=== PATIENT | male | born 1960 | race Caucasian/White ===

== ENCOUNTER 2020-12-06 18:25 | Emergency (ER) | payer MEDICAID ==
--- NOTE | 2020-12-06 18:59 | EDM.PDOC ---
ED HPI GENERAL MEDICAL PROBLEM - General Chief Complaint: ENT Problem Stated Complaint: FB STUCK IN THROAT Time Seen by Provider: 12/06/20 18:32 Source of Information: Reports: Patient, RN Notes Reviewed History Limitations: Reports: No Limitations - History of Present Illness INITIAL COMMENTS - FREE TEXT/NARRATIVE: Patient is a 60-year-old male presenting to the emergency department with complaints of foreign body sensation in his esophagus. He states around 6 PM this evening, he was eating pork chop and that he choked on it. He states that it felt like it was stuck in his throat. He drinks some water and coughed again. He coughed up a small piece of pork chop but states that he also coughed up blood. Few minutes later then he coughed up more blood. He feels like there is something's stuck in his distal esophagus. He has had problems with swallowing in the past but has never required endoscopy for retrieval. Denies any further bleeding at this time. He is not having significant pain but rather has a foreign body sensation in his distal esophagus. Upper Abdomen Pain Score (Numeric/FACES): 7 - Related Data Allergies Allergy/AdvReac Type Severity Reaction Status Date / Time No Known Allergies Allergy Verified 12/06/20 18:37 Home Meds: Home Meds . [No Known Home Meds] 12/06/20 [History] Past Medical History Psychiatric History: Reports: Anxiety, Depression - Past Surgical History Musculoskeletal Surgical History: Reports: Arthroscopic Knee, Other (See Below) Other Musculoskeletal Surgeries/Procedures:: open knee surgery Social & Family History - Tobacco Use Tobacco Use Status *Q: Current Every Day Tobacco User Years of Tobacco use: 40 Packs/Tins Daily: 0.5 - Caffeine Use Caffeine Use: Reports: Coffee, Soda - Recreational Drug Use Recreational Drug Use: No ED ROS ENT - Review of Systems Review Of Systems: See Below Constitutional: Reports: No Symptoms. Denies: Fever, Chills HEENT: Reports: No Symptoms Respiratory: Reports: No Symptoms Cardiovascular: Reports: No Symptoms Endocrine: Reports: No Symptoms GI/Abdominal: Reports: Other (Foreign body sensation in distal esophagus. Coughing up blood.) : Reports: No Symptoms Musculoskeletal: Reports: No Symptoms Skin: Reports: No Symptoms Neurological: Reports: No Symptoms Psychiatric: Reports: No Symptoms Hematologic/Lymphatic: Reports: No Symptoms Immunologic: Reports: No Symptoms ED EXAM, ENT - Physical Exam Exam: See Below General Appearance: Alert, WD/WN, No Apparent Distress Respiratory/Chest: No Respiratory Distress, Lungs Clear, Normal Breath Sounds, No Accessory Muscle Use, Chest Non-Tender Cardiovascular: Normal Peripheral Pulses, Regular Rate, Rhythm, No Edema, No Gallop, No JVD, No Murmur, No Rub GI/Abdominal: Normal Bowel Sounds, Soft, Non-Tender, No Organomegaly, No Distention, No Abnormal Bruit, No Mass Neurological: Alert, Oriented, CN II-XII Intact, Normal Cognition, Normal Gait, Normal Reflexes, No Motor/Sensory Deficits Psychiatric: Normal Affect, Normal Mood Skin: Warm, Dry, Intact, Normal Color, No Rash Course - Vital Signs Last Recorded V/S: Last Vital Signs Temp 95.8 F L 12/06/20 18:43 Pulse 93 12/06/20 18:43 Resp 20 12/06/20 18:43 BP 179/110 H 12/06/20 18:43 Pulse Ox 99 12/06/20 18:43 - Orders/Labs/Meds Labs: Laboratory Tests 12/06/20 12/06/20 Range/Units 19:34 19:34 WBC 9.69 H (4.23-9.07) K/mm3 RBC 5.53 (4.63-6.08) M/mm3 Hgb 15.9 (13.7-17.5) gm/dl Hct 48.2 (40.1-51.0) % MCV 87.2 (79.0-92.2) fl MCH 28.8 (25.7-32.2) pg MCHC 33.0 (32.2-35.5) g/dl RDW Std Deviation 43.1 (35.1-43.9) fL Plt Count 245 (163-337) K/mm3 MPV 11.6 (9.4-12.3) fl Neut % (Auto) 55.7 (34.0-67.9) % Lymph % (Auto) 32.0 (21.8-53.1) % [place] % (Auto) 7.6 (5.3-12.2) % Eos % (Auto) 4.0 (0.8-7.0) Baso % (Auto) 0.5 (0.1-1.2) % Neut # (Auto) 5.39 H (1.78-5.38) K/mm3 Lymph # (Auto) 3.10 (1.32-3.57) K/mm3 [place] # (Auto) 0.74 (0.30-0.82) K/mm3 Eos # (Auto) 0.39 (0.04-0.54) K/mm3 Baso # (Auto) 0.05 (0.01-0.08) K/mm3 Sodium 143 (136-145) mEq/L Potassium 4.0 (3.5-5.1) mEq/L Chloride 105 (98-107) mEq/L Carbon Dioxide 23 (21-32) mEq/L Anion Gap 19.0 H (5-15) BUN 19 H (7-18) mg/dL Creatinine 1.2 (0.7-1.3) mg/dL Est Cr Clr Drug Dosing 88.89 mL/min Estimated GFR (MDRD) > 60 (>60) mL/min BUN/Creatinine Ratio 15.8 (14-18) Glucose 138 H (74-106) mg/dL Calcium 9.1 (8.5-10.1) mg/dL Total Bilirubin 0.3 (0.2-1.0) mg/dL AST 17 (15-37) U/L ALT 35 (16-63) U/L Alkaline Phosphatase 91 (46-116) U/L Total Protein 7.8 (6.4-8.2) g/dl Albumin 4.0 (3.4-5.0) g/dl Globulin 3.8 gm/dL Albumin/Globulin Ratio 1.1 (1-2) Meds: Medications Discontinued Medications Generic Name Dose Route Start Last Admin Trade Name Freq PRN Reason Stop Dose Admin Al Hydroxide/Mg Hydroxide 30 0 ml 12/06/20 20:04 12/06/20 20:10 ml/ Lidocaine HCl 15 ml PO 12/06/20 20:05 45 ml ONETIME ONE Administration Glucagon 1 mg 12/06/20 19:26 12/06/20 19:41 Glucagen IVPUSH 12/06/20 19:27 1 mg ONETIME ONE Administration Lorazepam 1 mg 12/06/20 19:25 12/06/20 19:41 Ativan IVPUSH 12/06/20 19:26 1 mg ONETIME ONE Administration - Re-Assessments/Exams Free Text/Narrative Re-Assessment/Exam: Patient is a 6-year-old male presenting to the emergency department with complaints of foreign body sensation in his distal esophagus after choking on a pork chop. He also complains of spitting up blood on 2 instances after a choking episode. He has had problems with getting food stuck noises to the esophagus in the past, however he is normally able to clear it by drinking fluids. I have ordered a CT scan of the chest without contrast to ensure there is no perforation of the esophagus given the episode of him spitting up blood. 12/06/20 19:45 CT scan of the chest shows no radiopaque foreign object appreciated within the esophagus or within the visualized airways. Patient has no further bleeding. He did have an episode of worsening pain which was likely an esophageal spasm as it resolved quickly. I have ordered Ativan 1 mg IV and glucagon 1 mg IV. We will wait 15 minutes and have him try drinking some 7-Up. 12/06/20 20:08 Patient was able to drink an entire soda without difficulty. He does still have some discomfort in the area. He has had no further spitting up of blood. Called and spoke with surgeon on-call, Dr. Bangura. He states the bleeding is likely due to mucosal trauma. As long as he is able to keep liquids down, he would recommend clear liquid diet for the next 24 hours and for him to follow-up with him in the clinic. He may use [id number] Benadryl which may provide some relief from the discomfort. I ordered a GI cocktail to be given now. 12/06/20 20:26 Patient is feeling better after the GI cocktail. We will discharge him home with strict return precautions. Discharge instructions as documented. Departure - Departure Time of Disposition: 20:27 Disposition: Home, Self-Care 01 Condition: Good Clinical Impression: Food in esophagus causing other injury, initial encounter - Discharge Information *PRESCRIPTION DRUG MONITORING PROGRAM REVIEWED*: No *COPY OF PRESCRIPTION DRUG MONITORING REPORT IN PATIENT [place]: No Referrals: Eric Bangura MD [Physician] - Forms: ED Department Discharge Additional Instructions: You were seen in the emergency department today for pain and bleeding from her esophagus after choking on a piece of pork chop. Work-up included CT scan of your chest as well as blood work. Results of his work-up were found to be normal. There is no evidence of perforation of your esophagus. While in the ER, you received Ativan and glucagon to help facilitate passage of the food in your esophagus. You were able to drink without difficulty. Recommend clear liquid diet for the next 24 hours and then slowly advance as tolerated. You may use Benadryl 50 mg every 4-6 hours for discomfort. Recommend calling to schedule a follow-up appoint with general surgeon, Dr. Bangura. The number was to schedule with him as listed below. Return to ER for any recurrence of severe pain or bleeding. Sepsis Event Note (ED) - Evaluation Sepsis Screening Result: No Definite Risk
[2020-12-06] MEDS ORDERED: LORazepam 2 MG/ML SDV IVPUSH ONE (19:25)
[2020-12-06] MEDS ORDERED: Glucagon,Human Recombinant 1 MG Vial IVPUSH ONE (19:26)
--- NOTE | 2020-12-06 19:30 | CT ---
CT chest Technique: Multiple axial sections were obtained through the chest. Intravenous contrast was not utilized. Reconstructed coronal and sagittal images were obtained. Comparison: No previous chest imaging is available. Findings: Thoracic aorta shows no aneurysm. Small lymph nodes within the mediastinum are seen which are normal. No axillary adenopathy is seen. No pericardial thickening is seen. Noncontrast appearance of the upper abdomen shows no focal abnormality. I do not see any discrete radiopaque object within the esophagus or within the trachea or proximal bronchi. Emphysematous changes are noted within both lungs. No acute parenchymal change is appreciated. Bone window settings were obtained which show a compression deformity within the upper lumbar spine which is most likely old. No definite acute osseous finding is appreciated. Impression: 1. No radiopaque foreign object is appreciated within the esophagus or within the visualized airways. 2. Emphysematous change. 3. Other findings believed to be chronic as described above. Diagnostic code #2
[2020-12-06] MEDS ORDERED: Alum Hydrox/Mag Hydrox/Simeth 30 ML, Lidocaine 2% 15 ML PO ONE ×2 (20:04)
== END 2020-12-06 20:35 | disposition home or self-care (01) ==
LOC: JD.ED 18:25
DX: T18.128A Food in esophagus causing other injury, initial encounter (principal); Z72.0 Tobacco use
CPT/HCPCS: 36415; 71250; 80053; 85025; 96374; 96375; 99284; A9270; J1610; J2060

== ENCOUNTER 2022-09-24 08:27 | Day surgery (SDC) | payer SELFPAY ==
[2022-09-24] MEDS ORDERED: Metoclopramide 10 MG/2 ML SDV IVPUSH ONE (09:23)
[2022-09-24] MEDS ORDERED: HYDROmorphone 1 MG/ML Syringe IVPUSH ONE (09:23)
[2022-09-24] MEDS ORDERED: Glucagon,Human Recombinant 1 MG Vial IVPUSH ONE (09:23)
[2022-09-24] MEDS ORDERED: Dextrose 5%-0.9% NaCl 1,000 ML IV SCH (09:30)
[2022-09-24] MEDS ORDERED: Lactated Ringers 1,000 ML IV ONE (12:04)
[2022-09-24] MEDS ORDERED: Propofol 200 MG/20 ML SDV ONE (13:21)
[2022-09-24] MEDS ORDERED: Midazolam 1 MG/ML 2 ML SDV ONE (13:21)
[2022-09-24] MEDS ORDERED: Lidocaine 1% 4 ML ONE (13:40)
[2022-09-24] MEDS ORDERED: Succinylcholine 200 MG/10 ML MDV ONE (13:40)
[2022-09-24] MEDS ORDERED: fentaNYL 100 MCG/2 ML SDV ONE (13:51)
[2022-09-24] MEDS ORDERED: Phenylephrine HCl In 0.9% NaCl 1 MG/10 ML Vial ONE (14:04)
[2022-09-24] MEDS ORDERED: Ondansetron 4 MG/2 ML SDV ONE (14:06)
[2022-09-24] MEDS ORDERED: Dexamethasone 4 MG/ML SDV ONE (14:06)
[2022-09-24] MEDS ORDERED: Lidocaine 1% PF 2 ML SDV ONE (14:30)
[2022-09-24] MEDS ORDERED: Albuterol/Ipratropium 3.0-0.5 MG/3 ML Neb Soln NEB SCH (14:46)
[2022-09-24] MEDS ORDERED: Ibuprofen 800 MG Tab PO ONE (15:45)
== END 2022-09-24 15:55 | disposition home or self-care (01) ==
LOC: JD.ED 08:27 → JD.SDS 12:03
PROVIDERS: ATTEND Surgery
DX: K21.00 Gastro-esophageal reflux disease with esophagitis, without bleeding (principal); K31.89 Other diseases of stomach and duodenum; K22.2 Esophageal obstruction; K29.50 Unspecified chronic gastritis without bleeding; K29.80 Duodenitis without bleeding; D72.10 Eosinophilia, unspecified; F41.9 Anxiety disorder, unspecified; F32.A Depression, unspecified; K44.9 Diaphragmatic hernia without obstruction or gangrene; F17.210 Nicotine dependence, cigarettes, uncomplicated; R05.3 Chronic cough; Z96.659 Presence of unspecified artificial knee joint; Z98.890 Other specified postprocedural states
CPT/HCPCS: 36415; 43239; 71045; 80053; 83735; 85025; 93005; A9270; J0330; J1100; J1170; J1610; J2250; J2405; J2704; J2765; J3010; J7042; J7120; 00731; J7620-GY

== ENCOUNTER 2022-10-14 14:09 | Emergency (ER) | payer SELFPAY ==
[2022-10-14] MEDS ORDERED: Clindamycin HCl 150 MG Cap PO ONE (15:03)
[2022-10-14] MEDS ORDERED: Acetaminophen/HYDROcodone 325-5 MG Tab PO ONE (15:10)
== END 2022-10-14 15:47 | disposition home or self-care (01) ==
LOC: JD.ED 14:09
DX: K04.7 Periapical abscess without sinus (principal); F17.210 Nicotine dependence, cigarettes, uncomplicated
CPT/HCPCS: 99282; A9270-GY

== ENCOUNTER → 2023-10-10 | Day surgery (SDC) | payer SELFPAY ==
[~2023-10-10] MED LIST: Glucagon,Human Recombinant 1 MG Vial IVPUSH ONE; LORazepam 2 MG/ML SDV IVPUSH ONE; Metoclopramide 10 MG/2 ML SDV IVPUSH ONE; Sodium Chloride 0.9% 1,000 ML IV STA
[2023-10-10 17:39] LABS: BASOPHILS ABSOLUTE AUTO 0.1 K/mm3 (0.0-0.2); BASOPHILS PERCENT AUTO 0.8 % (0.0-1.0); EOSINOPHILS ABSOLUTE AUTO 0.4 K/mm3 (0.0-0.4); EOSINOPHILS PERCENT AUTO 5.7 % (0.0-6.0); HEMATOCRIT 41.2 % (42.0-52.0); HEMOGLOBIN 14.5 gm/dl (14.0-18.0); IMMATURE GRAN ABSOLUTE AUTO 0.03 K/mm3 (0.00-0.05); IMMATURE GRAN PERCENT AUTO 0.5 % (0.0-0.4); LYMPHOCYTES ABSOLUTE AUTO 2.2 K/mm3 (1.0-4.8); LYMPHOCYTES PERCENT AUTO 34.5 % (24.0-44.0); MEAN CORPUSCULAR HEMOGLOBIN 30.3 pg (28.0-32.0); MEAN CORPUSCULAR HGB CONC 35.2 g/dl (32.0-36.0); MEAN CORPUSCULAR VOLUME 86.2 fl (83.0-99.0); MEAN PLATELET VOLUME 10.7 fl (9.4-12.4); MONOCYTES ABSOLUTE AUTO 0.6 K/mm3 (0.0-0.8); MONOCYTES PERCENT AUTO 9.7 % (0.0-8.0); NEUTROPHILS ABSOLUTE AUTO 3.1 K/mm3 (1.8-7.7); NEUTROPHILS PERCENT AUTO 48.8 % (41.0-71.0); PLATELET COUNT,PLT 182 K/mm3 (150-400); RED BLOOD CELL COUNT 4.78 M/mm3 (4.52-5.90); WHITE BLOOD CELL COUNT,WBC 6.37 K/mm3 (3.9-11.3)
[2023-10-10 18:04] LABS: A/G RATIO 1.1 (1-2); ALBUMIN 3.8 g/dl (3.4-5.0); ANION GAP 16.7 (5-15); BILIRUBIN TOTAL 0.4 mg/dL (0.2-1.0); BUN/CREATININE RATIO 9.2 (14-18); CALCIUM 8.9 mg/dL (8.5-10.1); CREATININE 1.2 mg/dL (0.7-1.3); EST CRCL DRUG DOSING (CG) 86.67 mL/min; POTASSIUM,K 3.7 mEq/L (3.5-5.1); PROTEIN TOTAL,TP 7.2 g/dl (6.4-8.2)
== END ==
LOC: JD.ED 16:45 → JD.SDS 19:16
PROVIDERS: ATTEND Specialist
DX: T18.128A Food in esophagus causing other injury, initial encounter (principal); F41.9 Anxiety disorder, unspecified; Z87.891 Personal history of nicotine dependence
CPT/HCPCS: 36415; 80053; 85025; 96374; 96375; 99283; J1610; J2060; J2765; J7030; 99284

== ENCOUNTER 2024-07-15 10:06 | Emergency (ER) | payer OTHER ==
[2024-07-15] MEDS: HYDROmorphone 1 MG/ML Syringe IM ONE (11:12)
[2024-07-15] MEDS: cefTRIAXone 1 GM, Lidocaine 1% 2.1 ML IM ONE (11:12)
== END 2024-07-15 13:32 | disposition home or self-care (01) ==
LOC: JD.ED 10:06
DX: K22.2 Esophageal obstruction (principal); E78.00 Pure hypercholesterolemia, unspecified; Z87.891 Personal history of nicotine dependence; Z79.899 Other long term (current) drug therapy
CPT/HCPCS: 96372; 99283; J0696; J1170; J3490

== ENCOUNTER 2025-06-10 02:37 | Emergency (ER) | payer OTHER ==
[2025-06-10] MEDS: Ketorolac 30 MG/ML SDV IM ONE (04:12)
== END 2025-06-10 05:10 | disposition home or self-care (01) ==
LOC: JD.ED 02:37
DX: M79.671 Pain in right foot (principal); E78.00 Pure hypercholesterolemia, unspecified; Z87.891 Personal history of nicotine dependence; Z79.899 Other long term (current) drug therapy
CPT/HCPCS: 73590; 73630; 96372; 99283; J1885

== ENCOUNTER 2025-06-22 03:59 | Emergency (ER) | payer OTHER, MEDICAID | END 2025-06-22 07:20 | disposition home or self-care (01) | LOC: JD.ED 03:59 | DX: M25.562 Pain in left knee (principal); E78.00 Pure hypercholesterolemia, unspecified; Z87.891 Personal history of nicotine dependence; Z79.899 Other long term (current) drug therapy | CPT/HCPCS: 73564-26-LT; 73564-LT; 93971-26-LT; 93971-LT; 99284 ==

== ENCOUNTER 2025-07-24 15:55 | Emergency (ER) | payer OTHER, MEDICAID | END 2025-07-24 17:30 | disposition left against medical advice (07) | LOC: JD.ED 15:55 | DX: Z53.21 Procedure and treatment not carried out due to patient leaving prior to being seen by health care provider (principal) ==

== ENCOUNTER 2025-07-25 11:12 | Emergency (ER) | payer OTHER, MEDICAID ==
[2025-07-25] MEDS: cefTRIAXone 1 GM, Lidocaine 1% 2.1 ML IM ONE (12:27)
== END 2025-07-25 12:25 | disposition home or self-care (01) ==
LOC: JD.ED 11:12
DX: M25.562 Pain in left knee (principal); K04.7 Periapical abscess without sinus; K02.9 Dental caries, unspecified; E78.00 Pure hypercholesterolemia, unspecified; Z79.899 Other long term (current) drug therapy; X50.1XXA Overexertion from prolonged static or awkward postures, initial encounter
CPT/HCPCS: 99283; J0696; J1171; J2003

== ENCOUNTER 2025-08-26 18:42 | Day surgery (SDC) | payer OTHER, MEDICAID ==
[2025-08-26 19:07] LABS: BASOPHILS ABSOLUTE AUTO 0.1 K/mm3 (0.0-0.2); BASOPHILS PERCENT AUTO 0.7 % (0.0-1.0); EOSINOPHILS ABSOLUTE AUTO 0.7 K/mm3 (0.0-0.4); EOSINOPHILS PERCENT AUTO 9.6 % (0.0-6.0); IMMATURE GRAN ABSOLUTE AUTO 0.04 K/mm3 (0.00-0.05); IMMATURE GRAN PERCENT AUTO 0.6 % (0.0-0.4); LYMPHOCYTES ABSOLUTE AUTO 2.1 K/mm3 (1.0-4.8); LYMPHOCYTES PERCENT AUTO 31.3 % (24.0-44.0); MEAN PLATELET VOLUME 11.1 fl (9.4-12.4); MONOCYTES ABSOLUTE AUTO 0.5 K/mm3 (0.0-0.8); MONOCYTES PERCENT AUTO 7.7 % (0.0-8.0); NEUTROPHILS ABSOLUTE AUTO 3.4 K/mm3 (1.8-7.7); NEUTROPHILS PERCENT AUTO 50.1 % (41.0-71.0); NRBC ABSOLUTE 0.00 (0.00-0.02); NRBC PERCENT 0.0 % (0.0-0.2); PLATELET COUNT,PLT 158 K/mm3 (150-400); RED BLOOD CELL COUNT 4.74 M/mm3 (4.52-5.90); WHITE BLOOD CELL COUNT,WBC 6.75 K/mm3 (3.9-11.3)
[2025-08-26] MEDS: LORazepam 2 MG/ML SDV IVPUSH ONE (19:13)
[2025-08-26 19:28] LABS: A/G RATIO 1.3 (1-2); ALANINE AMINOTRANSFERASE,ALT 21.0 U/L (16-63); ASPARTATE AMNIOTRANSFERASE,AST 15.0 U/L (15-37); BILIRUBIN TOTAL 0.5 mg/dL (0.2-1.0); BLOOD UREA NITROGEN,BUN 12.0 mg/dL (7-18); CARBON DIOXIDE,CO2 26.0 mEq/L (21-32); CHLORIDE,CL 104.0 mEq/L (98-107); CREATININE 1.2 mg/dL (0.7-1.3); EST CRCL DRUG DOSING (CG) 84.44 mL/min; ESTIMATED GFR 68.0 mL/min (>60); GLUCOSE RANDOM 166.0 mg/dL (70-99); POTASSIUM,K 3.7 mEq/L (3.5-5.1); PROTEIN TOTAL,TP 7.2 g/dl (6.4-8.2); SODIUM,NA 141.0 mEq/L (136-145)
[2025-08-26] MEDS ORDERED: Succinylcholine 200 MG/10 ML MDV ONE (21:16)
[2025-08-26] MEDS ORDERED: Propofol 200 MG/20 ML SDV ONE ×2 (21:16→21:39)
[2025-08-26] MEDS ORDERED: Midazolam 1 MG/ML 2 ML SDV ONE (21:18)
[2025-08-26] MEDS ORDERED: Lactated Ringers 1,000 ML ONE (21:25)
[2025-08-26] MEDS ORDERED: Ondansetron 4 MG/2 ML SDV IVPUSH PRN (22:35)
[2025-08-26] MEDS ORDERED: fentaNYL 100 MCG/2 ML SDV IVPUSH PRN (22:35)
[2025-08-26] MEDS: Ketorolac 30 MG/ML SDV IVPUSH PRN (22:45)
== END 2025-08-26 23:40 | disposition home or self-care (01) ==
LOC: JD.ED 18:42 → JD.SDS 21:15
PROVIDERS: ATTEND Surgery
DX: T18.128A Food in esophagus causing other injury, initial encounter (principal); E78.00 Pure hypercholesterolemia, unspecified; Z79.899 Other long term (current) drug therapy
CPT/HCPCS: 36415; 43247; 80053; 85025; 96374; 96375; 99284; J0330; J1610; J1885; J2003; J2060; J2250; J2704; J7120; 00731; 99140; 99283; J1171; J3490